=== PATIENT | female | born 1990 | race Caucasian/White ===

== ENCOUNTER → 2018-03-09 13:40 | Outpatient (CLI) | payer SELFPAY ==
[2018-03-10 16:01] LABS: Chlamydia Trachomatis by PCR Negative (Negative); Neisserai gonorrhoeae by PCR Negative (Negative); Probe Check PASS; Sample Adequacy Control PASS; Specimen Processing Control PASS
[2018-03-12 11:40] LABS: HPV Reflexed? NOT INDICATED
== END ==
PROVIDERS: Visit Provider Obstetrics & Gynecology
DX: Z12.4 Encounter for screening for malignant neoplasm of cervix (principal); Z11.3 Encounter for screening for infections with a predominantly sexual mode of transmission
CPT/HCPCS: 87491; 87591; 87624; 88175; G0145

== ENCOUNTER → 2018-03-25 14:22 | Outpatient (CLI) | payer OTHER, SELFPAY ==
[2018-03-25 17:20] LABS: Absolute Lymphocyte Count 1.54 X10^3/ul (0.83-4.51); Absolute Neutrophil Count 11.3 X10^3/uL (2.0-7.7); Basophil# 0.03 X10^3/uL; Basophil% 0.2 % (0-1); Eosinophil# 0.11 X10^3/uL; Eosinophils% 0.8 % (0-5); Hematocrit 37.5 % (37-47); Hemoglobin 12.3 g/dl (12.0-15.0); Lymphocyte # 1.54 X10^3/ul (4.0); Lymphocyte % 11.2 % (19-41); Mean Corp Hgb Conc 32.8 g/gl (32-36); Mean Corpuscular Hgb 31.1 pg (27.0-32.0); Mean Corpuscular Volume 94.9 fL (81-99); Mean Platelet Vol. 11.8 fl (6.2-12.0); Monocyte# 0.79 X10^3/uL; Monocyte% 5.7 % (0-10); Neutrophil # 11.26 X10^3/uL (2.7-7.7); Neutrophil % 81.7 % (47-70); Platelet Count 207 K/mm3 (150-450); RBC Distribution Width CV 12.5 % (11.6-14.6); RBC Distribution Width SD 42.2 fl (35.1-43.9); Red Blood Count 3.95 M/mm3 (4.2-5.4); White Blood Count 13.8 K/mm3 (4.4-11.0)
[2018-03-25 17:21] LABS: POSITIVE COUNT NO; POSITIVE DIFFERENTIAL NO; POSITIVE MORPHOLOGY NO
[2018-03-25 17:43] LABS: Thyroid Stim Hormone (TSH) 0.64 uIU/mL (0.358-3.74)
[2018-03-25 17:52] LABS: Color, Urine Yellow (Yellow); Glucose, Dipstick Normal (Normal); Ketone-Dipstick Negative (Negative); Leukocyte Esterase-Dipstick 500 /ul (Negative); Nitrite-Dipstick Negative (Negative); Occult Blood-Urine Negative /ul (Negative); Protein-Dipstick Negative (Negative); Specific Gravity, Urine 1.015 (1.002-1.030); Urine Bilirubin Dipstick Negative (Negative); Urine Clarity Cloudy (Clear); Urine Urobilinogen 1 mg/dl (Normal)
[2018-03-25 23:34] LABS: Prenatal RPR NONREACTIVE (NONREACTIVE)
[2018-03-26 11:11] LABS: HIV - WCH Non-Reactive (Nonreactive); Rubella IgG > 500.0 IU/mL
[2018-03-27 11:14] LABS: HEPATITIS B SURFACE AG Negative (Negative); Hep C Antibodies <0.1 s/co ratio (0.0-0.9)
== END ==
PROVIDERS: Visit Provider Obstetrics & Gynecology
DX: Z34.81 Encounter for supervision of other normal pregnancy, first trimester (principal)
CPT/HCPCS: 36415; 81002; 84443; 85025; 86703; 86762; 86803; 87340

== ENCOUNTER → 2018-09-23 13:36 | Outpatient (CLI) | payer OTHER, SELFPAY | PROVIDERS: Referring Provider Obstetrics & Gynecology; Visit Provider Obstetrics & Gynecology | DX: Z36.85 Encounter for antenatal screening for Streptococcus B (principal) | CPT/HCPCS: 87081 ==

== ENCOUNTER 2018-10-06 02:19 | Inpatient (IN) | payer SELFPAY, OTHER ==
[2018-10-06] MEDS: Lactated Ringers 1,000 ML 50 ML IV (02:48)
[2018-10-06 02:56] LABS: Hemoglobin 11.1 g/dL (12.0-15.0); Mean Corp Hgb Conc 33.6 g/dL (32-36); Mean Corpuscular Hgb 32.6 pg (27.0-32.0); Mean Corpuscular Volume 97.1 fL (81-99); Mean Platelet Vol. 10.3 fl (6.2-12.0); POSITIVE COUNT YES; POSITIVE MORPHOLOGY YES; Platelet Count 164 K/mm3 (150-450); RBC Distribution Width CV 13.9 % (11.6-14.6); RBC Distribution Width SD 49.4 fl (35.1-43.9); White Blood Count 18.1 K/mm3 (4.4-11.0)
[2018-10-06 02:57] VITALS: BMI 30.2
[2018-10-06 02:57] LABS: Differential Indicated MANUAL DIFF
[2018-10-06 03:20] LABS: Eosinophil 1 % (0-5); Lymphocyte 10 % (19-41); Metamyelocyte 2 % (0-1); Monocyte 3 % (0-10); Neutrophil-Band 4 % (0-5); Neutrophil-Segmented 80 % (47-70); Platelet Estimate ADEQUATE (ADEQ); Red Cell Morphology NORM C+C NORMAL (NORM C&C); Total Cells Counted 100 (MANUAL DIFF)
[2018-10-06 03:21] LABS: Absolute Lymphocyte Count 1.81 X10^3/uL (0.83-4.51); Absolute Neutrophil Count 15.2 X10^3/uL (2.0-7.7); Lymphocyte # 1.81 X10^3/ul (4.0)
--- NOTE | 2018-10-06 08:39 | PCM.HP.BLA ---
History and Physical Date of Admission: 10/06/18 History of this : 28 yo female Ab0 with EDC 10/18/2018 by Ultrasound, presents to Labor and Delivery. care remarkable for - O NEGATIVE Pertinent Past Medical History: non-smoker Allergies: No Known Drug Allergies Medications: During - ondansetron 8 mg disintegrating tablet; ondansetron 8 mg disintegrating tablet Review of Systems: Non-contributory PHYSICAL EXAMINATION General Appearence: 28 yo female in no acute distress Vital Signs: AF, VSS Heart: RRR without rubs or gallops Lungs: CTA x 2 Breasts: deferred Abdomen: gravid Pelvis: Cervix: 3/50; gross ROM, clear Presentation: cephalic Station: -2 Fetus: Size: AGA Movement: present Heart: present Impression /Plan: Intrauterine . Preparations in progress for delivery.
[2018-10-06] MEDS: Oxytocin 30 units/NS 500 ml 30 UNITS/500 ML IV.SOLN 334 UNITS IV (09:51)
--- NOTE | 2018-10-06 10:08 | OP.PCM_ITS ---
Vaginal Delivery Maternal Presentation: Active Labor, Spontaneous Rupture of Membranes Amniotic Membrane Rupture Type: Spontaneous at home Amniotic Fluid Description: Clear Final AMY: 10/18/18 Final AMY Source: US <20 weeks Gestational age: 38 Weeks and 2 Days Date of Procedure: 10/06/18 Pre-Operative Diagnosis: IUP Post-Operative Diagnosis: IUP Surgery/ Procedure Performed: Spontaneous Vaginal Delivery Type of Anesthesia: None Description of Procedure: Spontaneous vaginal delivery of a viable female with Apgars of 8/9 from an occiput anterior presentation with clear amniotic fluid and normal three- vessel placenta. Cord around the neck x2 tight. No episiotomy. First-degree midline laceration repaired with 3-0 Rapide suture. Sponges okay. Delivery physician: Braxton Elkins MD. Presentation: Vertex Placental Delivery Description: Spontaneous Placenta Disposition: [facility] Cord Vessel Description: 3 Vessels Cord Entanglement: Around neck x 2, tight Estimated Blood Loss: 250 cc Infant A gender: Female (1 minute): 8 (5 minute): 9 Episiotomy Description: None Laceration: Midline, 1st degree Medications given after delivery: IV Pitocin Complications: None
--- NOTE | 2018-10-06 10:11 | DCINST_ITS ---
Discharge Diet: No Restrictions Discharge Activity: May Shower, May Take a Tub Bath May resume sexual activity in: 4-6 weeks Additional Activity Instructions:: Nothing in the vagina for 4-6 weeks. You may return to work/school in 6 weeks. Call your doctor if you observe: Fever of 101 or Higher, Inability to urinate, Inability to have a bowel movement, Using more than one pad per hour Additional Instructions: If you experience any of the following, contact your healthcare provider. * Bleeding that soaks a pad every hour for 2 hours * Unrelieved incision or abdominal pain * Swelling, redness, discharge or bleeding from your incision or episiotomy site * Your incision begins to separate * Problems urinating (including inability to urinate or burning while urinating). * Visual changes * Severe headache * Flu-like symptoms * Pain or redness in one of both of your breasts * Pain, warmth, tenderness or swelling in your legs, especially the calf area * Frequent nausea and vomiting * Symptoms of depression or anxiety If you experience any of the following, call 911 or go to the nearest Emergency Room. * Chest pain * Problems breathing * Seizure activity * Partial or complete paralysis of a body part, slurred speech, weakness or drooping of the face, or a sudden inability to walk or hold your balance Allergies/Adverse Reactions: Allergies No Known Allergies Allergy (Verified 10/06/18 03:00) Medications to take at Discharge Fish Oil 1,000 mg Capsule 1,000 mg PO DAILY 10/06/18 Miscellaneous Medical Supply 2 tab PO DAILY 10/06/18 Tablet 1 tab PO DAILY 10/06/18 Please Follow Up With: Braxton Elkins MD - [phone] When: Call to make an appointment with your doctor in 6 weeks. Primary Care Physician: Care Physician,No Primary [Primary Care Provider] - Test Results: Test results from this visit will be discussed in further detail at your follow- up appointment, if applicable.
[2018-10-06] MEDS: Acetaminophen 500 MG Tablet 1000 MG PO ×2 (10:51→21:36)
[2018-10-06 13:49] LABS: Pathologist Review Reviewed
[2018-10-06 16:05] VITALS: BP 114/66; PULSE 105; RESP 16; TEMP 36.8
[2018-10-06] MEDS: Ibuprofen 600 MG Tablet PO (16:12)
[2018-10-06 20:00] VITALS: BP 108/61; PULSE 106; RESP 16; TEMP 36.4; O2SAT 98
[2018-10-07 00:27] VITALS: BP 101/55; PULSE 87; RESP 16; TEMP 36.2; O2SAT 97
[2018-10-07 04:00] VITALS: BP 103/60; PULSE 79; RESP 16; TEMP 36.3; O2SAT 100
[2018-10-07] MEDS: Ibuprofen 600 MG Tablet PO (04:15)
[2018-10-07 08:30] VITALS: BP 102/61; PULSE 93; RESP 14; TEMP 36.2
--- NOTE | 2018-10-07 09:41 | PCM.PN.OB ---
Subjective: Patient without complaints. Reports minimal vaginal bleeding. Breast-feeding and supplementing. - Physical Exam Vital Signs Temp Pulse Resp BP Pulse Ox 97.2 F L 93 14 102/61 100 10/07/18 08:30 10/07/18 08:30 10/07/18 08:30 10/07/18 08:30 10/07/18 04:00 Oxygen Delivery Method Room Air Weight: 171 lb Body Mass Index (BMI) 30.2 Intake and Output for Last 24 Hours 10/05/18 10/06/18 10/07/18 23:59 23:59 23:59 Intake Total 994.17 / 994.17 Balance 994.17 / 994.17 Laboratory Tests Past 24 Hrs 10/06/18 10/06/18 02:48 15:30 Diff Path Review Reviewed Screen NEGATIVE Baby's Blood Type O POSITIVE Baby's TOOTIE NEGATIVE Medical Necessity - Tobacco Use Smoking Status: Never smoker Assessment/Plan Doing well day #1 status post routine spontaneous vaginal delivery. Considering going home with baby is able to go. Home-going instructions given.
[2018-10-07 11:45] VITALS: BP 101/60; PULSE 85; RESP 16; TEMP 36.8
== END 2018-10-07 13:50 | disposition home or self-care (01) | DRG 807 ==
PROVIDERS: Admitting Provider Obstetrics & Gynecology; Referring Provider Obstetrics & Gynecology; Visit Provider Obstetrics & Gynecology
DX: O69.1XX0 Labor and delivery complicated by cord around neck, with compression, not applicable or unspecified (principal); O70.0 First degree perineal laceration during delivery; Z3A.38 38 weeks gestation of pregnancy; Z37.0 Single live birth
CPT/HCPCS: 59025; 59050; 85025; 85461; 86850; 86900; 86901; 90384; 99218; J7120; G0378; J2790

== ENCOUNTER → 2022-01-31 | Outpatient (CLI) | payer OTHER, SELFPAY ==
[2022-01-31 12:29] LABS: Absolute Lymphocyte Count 2.22 X10^3/uL (0.83-4.51); Absolute Neutrophil Count 5.1 X10^3/uL (2.0-7.7); Basophil# 0.04 X10^3/uL; Basophil% 0.5 % (0-1); Eosinophil# 0.05 X10^3/uL; Eosinophils% 0.6 % (0-5); Hemoglobin 10.8 g/dL (12.0-15.0); Lymphocyte # 2.22 X10^3/ul (0.83-4.51); Lymphocyte % 27.5 % (19-41); Mean Corp Hgb Conc 32.7 g/dL (32-36); Mean Corpuscular Hgb 30.6 pg (27.0-32.0); Mean Corpuscular Volume 93.5 fL (81-99); Mean Platelet Vol. 9.8 fl (6.2-12.0); Monocyte# 0.58 X10^3/uL; Monocyte% 7.2 % (0-10); NRBC Flagged by Analyzer 0 % (0-5); Neutrophil # 5.12 X10^3/uL (2.7-7.7); Neutrophil % 63.5 % (47-70); Platelet Count 181 K/mm3 (150-450); RBC Distribution Width CV 13.7 % (11.6-14.6); RBC Distribution Width SD 46.6 fl (35.1-43.9); Red Blood Count 3.53 M/mm3 (4.2-5.4); White Blood Count 8.1 K/mm3 (4.4-11.0)
[2022-01-31 13:12] LABS: HIV - WCH Non-Reactive (Nonreactive); Hepatitis B Surface Antigen Non-Reactive (Nonreactive); Hepatitis C Antibody Non-Reactive (Nonreactive); Rubella IgG Reactive (Nonreactive); Syphilis Antibodies Non-reactive
[2022-02-01 14:29] LABS: V-Zoster IgG (Immunity) 609 index (Immune >165)
[2022-02-02 09:07] LABS: Chlamydia By Nucleic Acid AMP Negative (Negative)
[2022-02-02 13:38] LABS: Gonococcus By Nucleic Acid AMP Negative (Negative)
[2022-02-11 16:59] LABS: HPV APTIMA, High Risk Negative (Negative)
== END | disposition home or self-care (01) ==
PROVIDERS: Visit Provider Obstetrics & Gynecology
DX: Z34.81 Encounter for supervision of other normal pregnancy, first trimester (principal)
CPT/HCPCS: 36415; 85025; 86703; 86762; 86780; 86787; 86803; 87086; 87088; 87340; 87491; 87591; 87624; 88175; G0145

== ENCOUNTER → 2022-05-21 | Outpatient (CLI) | payer OTHER, SELFPAY ==
[2022-05-21 10:53] LABS: Absolute Lymphocyte Count 1.99 X10^3/uL (0.83-4.51); Absolute Neutrophil Count 11.5 X10^3/uL (2.0-7.7); Basophil# 0.07 X10^3/uL; Basophil% 0.5 % (0-1); Eosinophil# 0.12 X10^3/uL; Eosinophils% 0.8 % (0-5); Hematocrit 32.8 % (37-47); Hemoglobin 10.8 g/dL (12.0-15.0); Lymphocyte # 1.99 X10^3/ul (0.83-4.51); Lymphocyte % 13.2 % (19-41); Mean Corp Hgb Conc 32.9 g/dL (32-36); Mean Corpuscular Hgb 31.9 pg (27.0-32.0); Mean Corpuscular Volume 96.8 fL (81-99); Mean Platelet Vol. 10.2 fl (6.2-12.0); NRBC Flagged by Analyzer 0 % (0-5); Neutrophil # 11.51 X10^3/uL (2.7-7.7); Neutrophil % 76.2 % (47-70); Platelet Count 210 K/mm3 (150-450); RBC Distribution Width CV 13.4 % (11.6-14.6); Red Blood Count 3.39 M/mm3 (4.2-5.4); White Blood Count 15.1 K/mm3 (4.4-11.0)
[2022-05-21 10:59] LABS: Glucose Challenge Gest 1H 50g 116 mg/dL (70-140)
[2022-05-21 11:15] LABS: Syphilis Antibodies Non-reactive
== END | disposition home or self-care (01) ==
PROVIDERS: Visit Provider Obstetrics & Gynecology
DX: Z34.82 Encounter for supervision of other normal pregnancy, second trimester (principal)
CPT/HCPCS: 36415; 82950; 85025; 86780

== ENCOUNTER → 2022-06-25 | Outpatient (CLI) | payer OTHER, SELFPAY | END | disposition home or self-care (01) | LOC: WOBLAB 10:11 | PROVIDERS: Visit Provider Obstetrics & Gynecology | DX: Z34.83 Encounter for supervision of other normal pregnancy, third trimester (principal) | CPT/HCPCS: 86850 ==

== ENCOUNTER → 2022-08-07 | Outpatient (CLI) | payer OTHER, SELFPAY ==
[2022-08-07 10:46] LABS: Absolute Neutrophil Count 11.6 X10^3/uL (2.0-7.7); Basophil# 0.08 X10^3/uL; Basophil% 0.5 % (0-1); Eosinophil# 0.09 X10^3/uL; Eosinophils% 0.6 % (0-5); Hematocrit 32.8 % (37-47); Hemoglobin 10.6 g/dL (12.0-15.0); Lymphocyte % 11.9 % (19-41); Mean Corp Hgb Conc 32.3 g/dL (32-36); Mean Corpuscular Hgb 31.3 pg (27.0-32.0); Mean Corpuscular Volume 96.8 fL (81-99); Mean Platelet Vol. 10.3 fl (6.2-12.0); Monocyte# 1.01 X10^3/uL; Monocyte% 6.7 % (0-10); NRBC Flagged by Analyzer 0 % (0-5); Neutrophil % 76.9 % (47-70); Platelet Count 199 K/mm3 (150-450); RBC Distribution Width CV 14.1 % (11.6-14.6); Red Blood Count 3.39 M/mm3 (4.2-5.4); White Blood Count 15.1 K/mm3 (4.4-11.0)
[2022-08-07 11:54] LABS: Syphilis Antibodies Non-reactive
== END | disposition home or self-care (01) ==
LOC: WOBLAB 10:24
PROVIDERS: Visit Provider Obstetrics & Gynecology
DX: Z34.83 Encounter for supervision of other normal pregnancy, third trimester (principal)
CPT/HCPCS: 36415; 85025; 86780; 87077; 87081

== ENCOUNTER 2022-08-29 04:25 | Inpatient (IN) | payer SELFPAY, OTHER ==
[2022-08-29] VITALS (99 sets, daily range): BP systolic 96–133; BP diastolic 53–73; PULSE 80–121; RESP 14–16; TEMP 36.8–37.1; O2SAT 83–100; BMI 32.3
[2022-08-29] MEDS: Lactated Ringers 1,000 ML 200 ML IV (04:37)
[2022-08-29] MEDS: LACTATED RINGERS 500 ML 999 ML IV ×3 (04:40→08:27)
[2022-08-29 04:54] LABS: Absolute Lymphocyte Count 2.17 X10^3/uL (0.83-4.51); Absolute Neutrophil Count 11.9 X10^3/uL (2.0-7.7); Basophil# 0.07 X10^3/uL; Basophil% 0.4 % (0-1); Eosinophil# 0.09 X10^3/uL; Eosinophils% 0.6 % (0-5); Hematocrit 34.7 % (37-47); Hemoglobin 11.5 g/dL (12.0-15.0); Lymphocyte # 2.17 X10^3/ul (0.83-4.51); Lymphocyte % 13.9 % (19-41); Mean Corp Hgb Conc 33.1 g/dL (32-36); Mean Corpuscular Hgb 31.9 pg (27.0-32.0); Mean Corpuscular Volume 96.1 fL (81-99); Mean Platelet Vol. 10.6 fl (6.2-12.0); Monocyte# 0.98 X10^3/uL; Monocyte% 6.3 % (0-10); NRBC Flagged by Analyzer 0 % (0-5); Neutrophil # 11.88 X10^3/uL (2.7-7.7); Neutrophil % 76.1 % (47-70); Platelet Count 225 K/mm3 (150-450); RBC Distribution Width SD 49.4 fl (35.1-43.9); Red Blood Count 3.61 M/mm3 (4.2-5.4); White Blood Count 15.6 K/mm3 (4.4-11.0)
[2022-08-29 05:44] LABS: Syphilis Antibodies Non-reactive
[2022-08-29] MEDS: fentaNYL-bupivacaine (epidural) 100 ML BAG EPIDURAL (06:33)
--- NOTE | 2022-08-29 07:31 | PCM.HP.BLA ---
History and Physical Date of Admission: 08/29/22 Chief complaint: Contractions History present illness: 32-year-old at 40 weeks and 0 days with AMY 08/29/2022 arrives with contractions. Denies headache, vision changes, chest pain, shortness of breath, nausea vomit, right upper quadrant pain. is complicated by BMI 32, blood type Rh- Obstetric history: G1: 39-week female 7 pounds 1 ounce G2: 38-week female 7 pounds 3 ounces G3: Current Past medical history: None Medications: vitamin Allergies: No known drug allergies Past surgical history: None Social history: Denies smoking, alcohol use, drug use Family history: Denies history DVT or PE Review of systems: Besides above pertinent positives a full review of systems was performed and found to be negative Physical exam: Vitals: Pulse 97 SPO2 100% on room air General: Normal-appearing no acute distress HEENT: Normocephalic/atraumatic no cervical lymphadenopathy Cardiac/respiratory: No use of accessory muscles, nonlabored breathing Abdomen: Soft, nontender, gravid Pelvic exam: Cervical exam 6/60/-3. AROM clear fluid Extremities: No peripheral edema normal peripheral pulses Psych: Normal affect and demeanor nonpressured speech Labs: White blood cell count 15.6 hemoglobin 11.6 hematocrit 34.7% platelets 225. Blood type O- antibody negative Assessment plan: Initially called by nursing patient arrived with contractions cervical exam 5+ centimeters given orders to admit for labor. Called back by nursing patient with 4-minute prolonged deceleration to hands and knees and recovered state on phone with nursing during evaluation and recovery heart tones recovered discussed and evaluated heart rate tracing with nursing, no questions from nursing, to continue expectant management. Patient seen and examined. 32-year-old at 40 weeks and 0 days arrives in labor. GBS negative. Patient comfortable with epidural. AROM as above. We will continue current management. Reviewed care plan with patient and partner along with nursing, and all questions answered
[2022-08-29] MEDS: Oxytocin 10 UNITS/ML Vial IM (09:16)
[2022-08-29] MEDS: Oxytocin 15 Units/NS 250ml 15 UNITS/250 ML IV.SOLN 167 UNITS IV (09:20)
--- NOTE | 2022-08-29 09:28 | EX.PCM.OBRPT ---
Vaginal Delivery Findings Description of Procedure: Normal spontaneous vaginal delivery of a viable male , vertex CYN. Head and shoulders delivered with ease. Cord clamped and cut. Baby handed off to patient. Placenta delivered via cord traction and fundal massage. IM and IV oxytocin initiated per protocol. Second-degree midline perineal laceration noted and repaired in typical fashion. EBL 250 cc Apgars 8/9
[2022-08-29] MEDS: Acetaminophen 500 MG Tablet 1000 MG PO ×2 (11:59→20:53)
[2022-08-29] MEDS: Ibuprofen 600 MG Tablet PO (15:51)
[2022-08-30] MEDS: Ibuprofen 600 MG Tablet PO (01:13)
--- NOTE | 2022-08-30 02:48 | DCINST_ITS ---
Discharge Instructions Diet Discharge Diet: No restrictions Activity Discharge Activity: Return to Normal Activity, May Drive and May Shower May resume sexual activity in: 4-6 weeks Weight Bearing Status: Weight bearing as tolerated Dressing / Incision Call your doctor if your incision/area has: Continuous Slow Oozing and Foul Smelling Discharge Call your doctor if you observe: Fever of 101 or Higher, Shortness of breath and Chest pain Follow Up Care Please Follow Up With: Calos Rousseau MD When: 4 to 6 weeks Test Results: Test results from this visit will be discussed in further detail at your follow- up appointment, if applicable. Discharge Plan Admission Admit Date/Time: 08/29/22 04:25 Attending Provider: Calos Rousseau Primary Care Provider: Care Physician,Oneyda Primary Discharge Orders/Prescriptions Prescriptions: No Action Fish Oil 1,000 mg Capsule 1,000 mg PO DAILY Hold Instructions: no longer taking Miscellaneous Medical Supply 2 tab PO DAILY Patient Comments: [place] medication; pt unsure of dose Tablet 1 tab PO DAILY Referrals / Follow Up: Care Physician,No Primary [Primary Care Provider] -
--- NOTE | 2022-08-30 02:48 | PN.OBGYN_ITS ---
Subjective Subjective No overnight complaints Objective Data Objective Data Vital Signs: Vital Signs Temp Pulse Resp BP Pulse Ox O2 Del Method 98.7 F 80 14 100/61 98 Room Air 08/29/22 15:52 08/29/22 23:58 08/29/22 23:58 08/29/22 23:58 08/29/22 12:05 08/29/22 23:58 Oxygen Delivery Method Room Air Weight: 182 lb 12.211 oz Body Mass Index (BMI) 32.3 Intake & Output: Intake and Output for Last 24 Hours 08/28/22 08/29/22 08/30/22 23:59 23:59 23:59 Intake Total 2693 / 2693 Output Total 3050 / 3050 Balance -357 / -357 Lab / Micro Data 08/29/22 04:37 Labs: Laboratory Results - last 24 hr 08/29/22 04:37: WBC 15.6 H, RBC 3.61 L, Hgb 11.5 L, Hct 34.7 L, MCV 96.1, MCH 31.9, MCHC 33.1, RDW Std Deviation 49.4 H, RDW Coeff of Srinath 14.0, Plt Count 225, MPV 10.6, Immature Gran % (Auto) 2.700 H, Neut % (Auto) 76.1 H, Lymph % (Auto) 13.9 L, [place] % (Auto) 6.3, Eos % (Auto) 0.6, Baso % (Auto) 0.4, Absolute Neuts (auto) 11.9 H, Absolute Lymphs (auto) 2.17, Nucleated RBC % 0, Syphilis Total Ab Non-reactive, Blood Type O NEGATIVE, Antibody Screen NEGATIVE 08/29/22 16:50: Screen NEGATIVE, Baby's Blood Type B POSITIVE, Baby's TOOTIE NEGATIVE Physical Exam Const alert, oriented x3, no apparent distress, average body habitus, healthy appearing and well nourished HEENT normocephalic and moist oral mucous membranes Eyes PERRL Neck full ROM Resp normal respiratory effort, no retractions and no use of accessory muscles GI GI Narrative: Soft, nontender, uterus firm and below umbilicus Extremity normal to inspection and full ROM Neuro moves all extremities and no focal motor deficits Psych mental status grossly normal, affect normal, speech normal and activity/motor behavior normal Assessment & Plan (1) Vaginal delivery: PLAN: day 1. Breast-feeding. Pain well controlled. 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
[2022-08-30 04:55] VITALS: BP 101/59; PULSE 79; RESP 14
[2022-08-30 08:25] VITALS: BP 94/55; PULSE 87; RESP 16; TEMP 36.4
[2022-08-30 13:27] VITALS: BP 103/46; PULSE 88; RESP 15; TEMP 36.7
== END 2022-08-30 13:50 | disposition home or self-care (01) | DRG 807 ==
LOC: WPOUT 04:28 → WP 04:28
PROVIDERS: Admitting Provider Obstetrics & Gynecology; Referring Provider Obstetrics & Gynecology; Visit Provider Obstetrics & Gynecology
DX: O76 Abnormality in fetal heart rate and rhythm complicating labor and delivery (principal); Z37.0 Single live birth; O26.893 Other specified pregnancy related conditions, third trimester; O70.1 Second degree perineal laceration during delivery; Z67.41 Type O blood, Rh negative; Z3A.40 40 weeks gestation of pregnancy
CPT/HCPCS: 59025; 59050; 85025; 85461; 86780; 86850; 86900; 86901; 99221; J7120; G0378; J2790